=== PATIENT | female | born 1960 | race Caucasian/White ===

== ENCOUNTER 2016-08-27 17:04 | Emergency (ER) | payer BC ==
[2016-08-27 17:16] VITALS: BP 150/97
--- NOTE | 2016-08-27 17:22 | UC ---
[facility] HPI - HPI Summary HPI Summary: right upper dental pain---no relief with tylenol or ibuprofen pain began 2 days ago does not have a dental appointment yet - History of Current Complaint Chief Complaint: UCDentalProblem Stated Complaint: DENTAL COMPLAINT Time Seen by Provider: 08/27/16 17:16 Hx Obtained From: Patient ?: No Onset/Duration: Lasting Weeks, Worse Since - past 2 days Severity: Severe Pain Intensity: 10 Pain Scale Used: 0-10 Numeric Aggravating: Chewing Alleviating: Nothing Related History: Previous Dental Care on Same Tooth, Swelling - Allergies/Home Medications Allergies/Adverse Reactions: Allergies Allergy/AdvReac Type Severity Reaction Status Date / Time No Known Allergies Allergy Verified 08/27/16 17:16 PMH/Surg Hx/FS Hx/Imm Hx Previously Healthy: No Respiratory History: Asthma GI/ History: Gastroesophageal Reflux Psychological History: Depression - Surgical History Surgical History: Yes Surgery Procedure, Year, and Place: 2 c-sections. gallbladder. full hysterectomy. tonsillectomy - Family History Known Family History: Positive: Respiratory Disease - Social History Occupation: Employed Full-time Lives: With Family Alcohol Use: None Substance Use Type: None Smoking Status (MU): Former Smoker Type: Cigarettes Amount Used/How Often: 1 ppd Length of Time of Smoking/Using Tobacco: 40 yrs Have You Smoked in the Last Year: No When Did the Patient Quit Smoking/Using Tobacco: 2012 Household Exposure Type: Cigarettes - Immunization History Most Recent Influenza Vaccination: NOT THIS SEASON Review of Systems Constitutional: Negative Skin: Negative Eyes: Negative ENT: Dental Pain Respiratory: Negative Cardiovascular: Negative Gastrointestinal: Negative Genitourinary: Negative Motor: Negative Neurovascular: Negative Musculoskeletal: Negative Neurological: Negative Psychological: Negative All Other Systems Reviewed And Are Negative: Yes Physical Exam Triage Information Reviewed: Yes Appearance: Ill-Appearing - chronic, Pain Distress, Obese Vital Signs: Initial Vital Signs Pulse 66 08/27/16 17:10 Resp 16 08/27/16 17:10 BP 150/97 08/27/16 17:10 Pulse Ox 94 08/27/16 17:10 Vital Signs Reviewed: Yes Eye Exam: Normal Eyes: Positive: Conjunctiva Clear ENT Exam: Normal ENT: Positive: Normal ENT inspection, Hearing grossly normal, Pharynx normal. Negative: Nasal congestion, Nasal drainage, Tonsillar swelling, Tonsillar exudate, Trismus, Muffled/hoarse voice Dental Exam: Other - multiple dental caries , missing and broken teeth Dental: Positive: Percussion Tenderness @, Gross Decay/Caries @, Dental Fracture @ Neck exam: Normal Neck: Positive: Supple, Nontender Respiratory Exam: Normal Respiratory: Positive: Chest non-tender, No respiratory distress, No accessory muscle use Cardiovascular Exam: Normal Cardiovascular: Positive: RRR, Pulses Normal, Brisk Capillary Refill Musculoskeletal Exam: Normal Musculoskeletal: Positive: Strength Intact, ROM Intact, No Edema Neurological Exam: Normal Neurological: Positive: Alert, Muscle Tone Normal Psychological Exam: Normal Skin Exam: Normal Dental Complaint Course/Dx - Course Course Of Treatment: amoxiciliin and pain medication follow with dentist this week - Differential Dx/Diagnosis Differential Diagnosis/Dx: Dental Abscess, Dental Caries, Odontogenic Pain Provider Diagnoses: right upper dental caries with abscess Discharge - Discharge Plan Condition: Stable Disposition: HOME Prescriptions: Amoxicillin CAP* [Amoxicillin 500 MG CAP*] 500 mg PO TID #30 cap Hydrocodone-Acetaminophen [Hydrocodone/Acetaminophen 5-325 mg] 1 tab PO Q6H PRN #15 tab MDD 4 PRN Reason: pain Ibuprofen TAB* [Motrin TAB* 600 MG] 600 mg PO Q6H PRN #40 tab PRN Reason: pain Patient Education Materials: Dental Abscess (ED), Toothache (ED) Referrals: Casper Crowell DO [Primary Care Provider] - If Needed Additional Instructions: Follow with Dentist this week
[2016-08-27] MEDS ORDERED: HYDROcodone/ACETAMIN 5-325 MG* 1 TAB PO ONE ×2 (17:23→17:30)
[2016-08-27] MEDS ORDERED: Amoxicillin CAP* 500 MG PO ONE (17:30)
== END 2016-08-27 17:50 | disposition home or self-care (01) ==
LOC: UCCORT 17:04
DX: K02.9 Dental caries, unspecified (principal); K04.7 Periapical abscess without sinus; J45.909 Unspecified asthma, uncomplicated; K21.9 Gastro-esophageal reflux disease without esophagitis; F32.9 Major depressive disorder, single episode, unspecified; Z87.891 Personal history of nicotine dependence
CPT/HCPCS: 99213; A9270-GY; G0463

== ENCOUNTER 2016-10-14 07:54 | Day surgery (SDC) | payer BC ==
--- NOTE | 2016-09-20 10:17 | HP ---
PREOPERATIVE HISTORY AND PHYSICAL: DATE OF ADMISSION/SURGERY: 10/14/16 DATE OF OFFICE VISIT/ENCOUNTER: 09/15/16 ATTENDING SURGEON: Donna Hanna MD * (DICTATED BY SOFIA SWENSON) PRIMARY CARE PHYSICIAN: Gian Crowell DO PROCEDURE: Left wrist carpal tunnel release. CHIEF COMPLAINT: Left hand numbness and tingling. HISTORY OF PRESENT ILLNESS: This is a 56-year-old female, who works in a factory, who complains of numbness and tingling in her left hand that has been present since before November 2015. She had an EMG/nerve conduction study performed at that time that showed moderate carpal tunnel syndrome on the left. She states symptoms have progressively worsened overtime and she is actually now also feeling similar symptoms in her right hand. She says on the left that she feels numb in her fingertips all the time. She has used a wrist brace in the past, but has not been very helpful recently. She denies any injury to either wrist. She is to the point where the symptoms are bothersome enough that she would like to proceed with a left wrist carpal tunnel release and she has consented for surgery. She will likely 3 weeks after having the left carpal tunnel release proceed with having a right carpal tunnel release. PAST MEDICAL HISTORY: 1. COPD. 2. Sleep apnea, with CPAP. 3. GERD. 4. Anxiety/depression. PAST SURGICAL HISTORY: 1. x2. 2. Cholecystectomy. 3. Hysterectomy. 4. Ganglion cyst excision from left wrist. CURRENT MEDICATIONS: 1. Oxygen used at 2 L per minute during exertion. 2. Advair HFA 230/21 mcg/ACT 2 puffs twice a day. 3. Fluoxetine HCl 40 mg daily. 4. Hydrocortisone acetate 30 mg 1 suppository per rectum twice a day. 5. Lansoprazole 30 mg 1 tab daily. 6. Magnesium over the counter once daily. 7. Spiriva Respimat 2.5 mcg/ACT 2 puffs every day. 8. Ventolin HFA 108 mcg/ACT 2 puffs 4 times a day p.r.n. 9. Vitamin D Ultra Strength 5000 units 1 daily. ALLERGIES: No known drug allergies. FAMILY MEDICAL HISTORY: Significant for cancer, melanoma in lungs. 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 She is a former smoker, she quit approximately 4 years ago. Prior to that she smoked for 40 years a pack a day. She denies recreational drug use. She denies alcohol use. REVIEW OF SYSTEMS: General: Negative for fevers, chills, or night sweats. No known anesthesia problems. HEENT: Negative for headache, lightheadedness, or syncopal episodes. Integumentary: Negative for abrasions, lesions, or open wounds. Cardiothoracic: Negative for hypertension, chest pain, palpitations, or edema. Pulmonary: Positive for shortness of breath with exertion and COPD. GI: Negative for nausea, vomiting, diarrhea, and constipation. Positive for GERD. : Negative for nocturia, urinary frequency, urgency, history of UTIs, or kidney problems. Musculoskeletal: Positive for current complaint. Neurological: Negative for history of seizure, stroke, or epilepsy. Positive for anxiety/depression. Endocrine: Negative for diabetes or thyroid issues. Hematologic: Negative for easy bruising, anemia, excessive bleeding, or history of DVT. Infectious Disease: Negative for history of MRSA, hepatitis C , or HIV. PHYSICAL EXAMINATION GENERAL: Well-developed, well-nourished, 56-year-old female in no acute distress. VITAL SIGNS: Height 5 feet 6 inches, weight 270 pounds, pulse rate 74, blood pressure 142/98. HEENT: Normocephalic, atraumatic. Pupils are equal, round, and reactive to light and accommodation. Extraocular movements are intact. NECK: Supple. No palpable lymph nodes. Throat is clear. PULMONARY: Lungs are clear to auscultation bilaterally. No wheezes, rales, or rhonchi. CARDIOTHORACIC: Regular rate and rhythm. S1, S2. No murmurs, rubs, or gallops. No edema. ABDOMEN: Positive bowel sounds, soft, nontender. NEUROLOGICAL: Alert and oriented x3. Cranial nerves II through XII are intact. Sensation is intact to light touch. MUSCULOSKELETAL: On exam of her bilateral hands, she has no significant thenar wasting. There is mild weakness with thumb abduction. Good range of motion with her fingers with flexion and extension. She has a positive Phalen's test and a positive median nerve compression test. Decreased sensation in the tip of her median nerve innervated fingers on the left hand. IMAGING STUDIES: EMG/nerve conduction study on left shows moderate carpal tunnel syndrome. IMPRESSION: Bilateral carpal tunnel syndrome, worse on the left than on the right. PLAN: The patient is scheduled to undergo a left carpal tunnel release with Dr. Hanna on 10/14/16. She will return to the office 10 to 14 days postop for followup and suture removal. A prescription for Tylenol No. 3 was e-scribed to the patient's pharmacy for postoperative pain management. We will plan on getting medical clearance from her primary care physician, Gian Crowell DO, prior to proceeding with surgery. SOFIA SWENSON [id number]/[facility] #: [id number] GAVINO
[~2016-10-14 07:54] MED LIST: Buffered Lidocaine 0.9% SYRIN* 5 ML/SYR SYRINGE INTRADERM ONE
[2016-10-14] MEDS ORDERED: Ondansetron INJ* 2 MG/ML VIAL IV PRN (09:14)
[2016-10-14] MEDS ORDERED: Acetaminophen TAB* 325 MG PO PRN (09:14)
[2016-10-14] MEDS ORDERED: fentaNYL* 50 MCG/ML 2 ML VIAL (100 MCG VIAL) ONE (09:21)
[2016-10-14] MEDS ORDERED: KETAMINE HCL* 50 MG/ML 10 ML VIAL ONE (09:21)
[2016-10-14] MEDS ORDERED: Midazolam* 1 MG/ML 2 ML VIAL (2 MG) ONE (09:21)
[2016-10-14] MEDS ORDERED: Lidocaine 1% INJ* 10 MG/ML 30 ML SDV ONE (09:46)
[2016-10-14] MEDS ORDERED: Propofol* 10 MG/ML 20 ML BTL IV PUSH ONE (09:47)
[2016-10-14] MEDS ORDERED: Lidocaine 2% PF * 5 ML VIAL ONE (09:47)
--- NOTE | 2016-10-14 10:32 | OP ---
DATE OF OPERATION: 10/14/16 [facility] DATE OF : 58 SURGEON: Donna Hanna MD ENGINEER CONDUCTOR: SOFIA Pineda ANESTHESIA: Local MAC PRE-OP DIAGNOSIS: Left carpal tunnel syndrome. POST-OP DIAGNOSIS: Left carpal tunnel syndrome. OPERATIVE PROCEDURE: Left carpal tunnel release. ESTIMATED BLOOD LOSS: Zero. TOURNIQUET TIME: 5 minutes. INDICATION FOR PROCEDURE: Ashley is a 56-year-old female with numbness and tingling in the median nerve distribution of her left hand. She presents for left carpal tunnel release. DESCRIPTION OF PROCEDURE: The patient was brought to the operating room, was given a sedation anesthetic and a local infiltration of 10 cc 1% plain lidocaine. The skin of her left hand and forearm was prepped and draped in the usual sterile fashion. The hand and forearm were exsanguinated and the tourniquet elevated to 250 mmHg. A longitudinal incision was made in the palm in line with the ring finger. We dissected through the subcutaneous tissue down to the transverse carpal ligament. The ligament was divided sharply with a knife and then more proximally with the scissors. The nerve was dissected free from surrounding tissue and there was an area of moderate compression at the mid portion of the ligament. The wound was irrigated and the skin edges reapproximated with 4-0 nylon suture. The wound was dressed with Xeroform, 4x4 , Webril, and an Maxwell wrap. The patient tolerated the procedure well, and was brought to the recovery room in good condition. [id number]/[facility] #: [id number] MTDD
[2016-10-14 10:38] VITALS: BP 119/73
== END 2016-10-14 10:40 | disposition home or self-care (01) ==
LOC: OREAST 07:54
PROVIDERS: ATTEND Orthopaedic Surgery
DX: G56.03 Carpal tunnel syndrome, bilateral upper limbs (principal); J44.9 Chronic obstructive pulmonary disease, unspecified; G47.30 Sleep apnea, unspecified; K21.9 Gastro-esophageal reflux disease without esophagitis; F41.9 Anxiety disorder, unspecified; F32.9 Major depressive disorder, single episode, unspecified; Z87.891 Personal history of nicotine dependence; E55.9 Vitamin D deficiency, unspecified; E66.01 Morbid (severe) obesity due to excess calories
CPT/HCPCS: J2001; J2250; J2704; J3010

== ENCOUNTER 2016-11-15 09:16 | Day surgery (SDC) | payer BC ==
--- NOTE | 2016-10-25 11:38 | HP ---
PREOPERATIVE HISTORY AND PHYSICAL: DATE OF SURGERY/ADMISSION: 11/15/16 [facility] DATE OF OFFICE VISIT/ENCOUNTER: 10/24/16 ATTENDING SURGEON: Donna Hanna MD * (DICTATED BY SOFIA SWENSON) PROCEDURE: Right wrist carpal tunnel release. CHIEF COMPLAINT: Right hand numbness and tingling. 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 The symptoms have gradually been progressing. She has used a wrist brace in the past, but has not been very helpful recently. She denies injury to this wrist. The numbness and tingling has become bothersome enough that she would like to proceed with a right carpal tunnel release. She recently underwent a left carpal tunnel release with Dr. Hanna and has done very well with that. PAST MEDICAL HISTORY: 1. COPD. 2. Sleep apnea with CPAP. 3. GERD. 4. Anxiety/depression. PAST SURGICAL HISTORY: 1. Left carpal tunnel release. 2. x2. 3. Cholecystectomy. 4. Hysterectomy. 5. Ganglion cyst excision from left wrist. CURRENT MEDICATIONS: 1. Oxygen used 2 L/minute during exertion. 2. Advair HFA 230/21 mcg/actuation 2 puffs twice a day. 3. Fluoxetine HCl 40 mg daily. 4. Hydrocortisone acetate 30 mg 1 suppository per rectum twice a day. 5. Lansoprazole 30 mg 1 tab daily. 6. Magnesium [id number] once daily. 7. Spiriva Respimat 2.5 mcg/actuation 2 puffs daily. 8. Ventolin HFA 108 mcg/actuation 2 puffs 4 times a day p.r.n. 9. Vitamin D ultra strength 5000 units daily. 10. Ibuprofen [id number] p.r.n. ALLERGIES: No known drug allergies. FAMILY MEDICAL HISTORY: Significant for cancer. 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 She is a former smoker. She quit approximately 4 years ago. Prior to that, she smoked for 40 years, a pack a day. She denies recreational drug use and alcohol use. REVIEW OF SYSTEMS: General: Negative for fevers, chills, or night sweats. No known anesthesia problems. HEENT: Negative for headache, lightheadedness, or syncopal episodes. Integumentary: Negative for abrasions, lesions, or open wounds. Cardiothoracic: Negative for hypertension, chest pain, palpitations, or edema. Pulmonary: Positive for shortness of breath with exertion and COPD. GI: Negative for nausea, vomiting, diarrhea, or constipation. Positive for GERD. : Negative for nocturia, urinary frequency, urgency, history of UTIs, or kidney problems. Musculoskeletal: Positive for current complaint. Neurological: Negative for history of seizures, stroke, or epilepsy. Positive for anxiety/depression. Endocrine: Negative for diabetes or thyroid issues. Hematologic: Negative for easy bruising, anemia, excessive bleeding, or history of DVT. Infectious Disease: Negative for history of MRSA, hepatitis C , or HIV. PHYSICAL EXAMINATION GENERAL: Well-developed, well-nourished 56-year-old female in no acute distress. VITAL SIGNS: Height 5 feet 6.5 inches, weight 275 pounds, blood pressure 170/88 , pulse rate 64. HEENT: Normocephalic, atraumatic. Pupils are equal, round, and reactive to light and accommodation. Extraocular movements are intact. Throat is clear. NECK: Supple. No palpable lymph nodes. PULMONARY: Lungs are clear to auscultation bilaterally. No wheezes, rales, or rhonchi. CARDIOTHORACIC: Regular rate and rhythm. S1, S2. No murmurs, rubs, or gallops. No edema. ABDOMEN: Positive bowel sounds, soft, nontender. MUSCULOSKELETAL: On exam of the right hand, there is no visible thenar wasting. There is mild weakness with thumb abduction. Good range of motion of the fingers with flexion and extension. There is a positive Phalen's test and a positive median nerve compression test. Sensation is intact to light touch throughout the hands. NEUROLOGICAL: Alert and oriented x3. Cranial nerves II through XII are intact. Sensation is intact to light touch. IMPRESSION: Right carpal tunnel syndrome. PLAN: The patient is scheduled to undergo a right wrist carpal tunnel release with Dr. Hanna on 11/15/16. She will return to the office 10 to 14 days postop for followup and suture removal. A prescription for Tylenol No. 3 was e- scribed to the patient's pharmacy for postoperative pain management. Recently, she got medical clearance by Gian Crowell DO, for surgery prior to her right carpal tunnel release on 10/14/16. There have been no changes in the patient's health since then. SOFIA SWENSON [id number]/[facility] #: [id number] GAVINO
[2016-11-15] MEDS ORDERED: KETAMINE HCL* 50 MG/ML 10 ML VIAL ONE (10:44)
[2016-11-15] MEDS ORDERED: Midazolam* 1 MG/ML 2 ML VIAL (2 MG) ONE (10:44)
[2016-11-15] MEDS ORDERED: fentaNYL* 50 MCG/ML 2 ML VIAL (100 MCG VIAL) ONE (10:44)
[2016-11-15] MEDS ORDERED: Lidocaine 1% INJ* 10 MG/ML 30 ML SDV ONE (11:17)
[2016-11-15] MEDS ORDERED: Levalbuterol 0.63MG/3ML NEB* UNIT OF USE INH PRN (11:25)
[2016-11-15] MEDS ORDERED: Acetaminophen TAB* 325 MG PO PRN (11:25)
[2016-11-15] MEDS ORDERED: Lidocaine 2% PF * 5 ML VIAL ONE (11:52)
[2016-11-15] MEDS ORDERED: Propofol* 10 MG/ML 20 ML BTL IV PUSH ONE (11:52)
[2016-11-15 12:31] VITALS: BP 106/65
--- NOTE | 2016-11-16 04:07 | OP ---
DATE OF OPERATION: 11/15/16 [facility] DATE OF : 58 SURGEON: Donna Hanna MD ANESTHESIOLOGIST: Dr. Leblanc ANESTHESIA: Local MAC. PRE-OP DIAGNOSIS: Right carpal tunnel syndrome. POST-OP DIAGNOSIS: Right carpal tunnel syndrome. OPERATIVE PROCEDURE: Right carpal tunnel release. INDICATIONS: Ashley is a 56-year-old female with numbness and tingling in the median nerve distribution of her right hand. She presents for right carpal tunnel release. ESTIMATED BLOOD LOSS: Zero. TOURNIQUET TIME: 5 minutes. DESCRIPTION OF PROCEDURE: The patient was brought to the operating room, was given a sedation anesthetic, and a local infiltration of 10 cc of 1% plain lidocaine. The skin of her right hand and forearm was prepped and draped in the usual sterile fashion. The hand and forearm were exsanguinated and the tourniquet elevated to 250 mmHg. A longitudinal incision was made in the palm in line with the ring finger. We dissected through the subcutaneous tissue down to the transverse carpal ligament. The ligament was divided sharply with a knife and then more proximally with the scissors. The nerve was dissected free from the surrounding tissue and there was an area of moderate compression at the mid portion of the ligament. The wound was irrigated and the skin edges reapproximated with 4-0 nylon suture. The wound was dressed with Xeroform, 4x4 , Webril, and an Maxwell wrap. The patient tolerated the procedure well and was brought to the recovery room in good condition. [id number]/[facility] #: [id number] [facility]
== END 2016-11-15 12:33 | disposition home or self-care (01) ==
LOC: OREAST 09:16
PROVIDERS: ATTEND Orthopaedic Surgery
DX: G56.01 Carpal tunnel syndrome, right upper limb (principal); J44.9 Chronic obstructive pulmonary disease, unspecified; G47.30 Sleep apnea, unspecified; K21.9 Gastro-esophageal reflux disease without esophagitis; F41.9 Anxiety disorder, unspecified; F32.9 Major depressive disorder, single episode, unspecified; Z87.891 Personal history of nicotine dependence
CPT/HCPCS: J2001; J2250; J2704; J3010